=== PATIENT | male | born 1960 | race Caucasian/White ===

== ENCOUNTER → 2023-08-06 12:26 | Outpatient (BNVA) | payer BC, SELFPAY | PROVIDERS: PCP Nurse Practitioner Occupational Health; Referring Provider Nurse Practitioner Occupational Health; Visit Provider Internal Medicine | DX: R07.9 Chest pain, unspecified (principal); I45.10 Unspecified right bundle-branch block | CPT/HCPCS: 93005 ==

== ENCOUNTER → 2023-08-15 09:16 | Outpatient (BNVA) | payer BC, SELFPAY | PROVIDERS: PCP Nurse Practitioner Occupational Health; Referring Provider Nurse Practitioner Occupational Health; Visit Provider Psychiatry & Neurology Neurology | DX: R20.0 Anesthesia of skin (principal); R00.1 Bradycardia, unspecified; R42 Dizziness and giddiness; E55.9 Vitamin D deficiency, unspecified; H53.8 Other visual disturbances; G45.9 Transient cerebral ischemic attack, unspecified; R41.0 Disorientation, unspecified | CPT/HCPCS: 80053; 81241; 82306; 82607; 82746; 83090; 83735; 83921; 84425; 84439; 84481; 85025; 85210; 85613; 85730; 86146; 86147; 86376 ==

== ENCOUNTER 2023-08-22 11:29 | Outpatient (CLI) | payer BC, SELFPAY ==
--- NOTE | 2023-08-22 12:00 | USCV_ITS ---
Wign Hastings Age: 62 Gender: M : 1960 Exam Date: 08/22/2023 12:15 Ordering Phys: Jose Alfredo Whalen M.D ([email or web address]) Technologist: JOCELYN [place]am Location: [facility] [place] [facility] [place]ication: SHORTNESS OF BREATH BP: 134 / 86 HR: 49 Rhythm: Sinus Technical Quality: Adequate MEASUREMENTS (Male / Female) Normal Values 2D ECHO LV Diastolic Diameter PLAX 4.2 cm 4.2 - 5.9 / 3.9 - 5.3 cm IVS Diastolic Thickness 1.1 cm 0.6 - 1.0 / 0.6 - 0.9 cm IVS Systolic Thickness 1.5 cm LVPW Diastolic Thickness 1.7 cm 0.6 - 1.0 / 0.6 - 0.9 cm LVPW Systolic Thickness 2.5 cm LVOT Diameter 2.0 cm LV Ejection Fraction 2D Teich 63.0 % LV Ejection Fraction MOD 2C 58.1 % LV Ejection Fraction 2C AL 58.9 % LA Diameter 3.4 cm RA Systolic Volume 4C AL 32.1 ml RA Systolic Volume 4C MOD 31.7 ml LA Sys Volume AL 38.0 cm cubed LA Sys Volume Index AL 18.4 cm cubed/m squared Aorta at Sinotubular Diameter 2.6 cm IVC Diameter 1.5 cm M-MODE LA Ao Ratio MM 1.3 AV Cusp Separation MM 1.6 cm DOPPLER AV Peak Velocity 114.0 cm/s LVOT Peak Velocity 93.0 cm/s AV Area Cont Eq vti 3.1 cm squared AV Area Cont Eq pk 2.6 cm squared MV Peak Velocity 69.0 cm/s MV Area PHT 4.0 cm squared Mitral E to A Ratio 0.9 TR Peak Velocity 137.0 cm/s TR Peak Gradient 7.5 mmHg TR Mean Velocity 114.0 cm/s TR Mean Gradient 5.5 mmHg TR Velocity Time Integral 40.1 cm Right Atrial Pressure 3.0 mmHg Pulmonary Artery Systolic Pressu 10.5 mmHg PV Peak Velocity 104.0 cm/s RV Ejection Time 0.3 s FINDINGS Left Ventricle Left ventricle is normal in size. LV systolic function is normal with EF of 55 to 60%. No regional wall motion abnormalities are seen. Right Ventricle Normal in size and function Right Atrium Normal in size Left Atrium Normal in size Mitral Valve Structurally normal mitral valve. Trace mitral regurgitation. Aortic Valve Structurally normal aortic valve. No significant stenosis. Mild aortic regurgitation Tricuspid Valve Insufficient TR jet to evaluate RVSP. Pulmonic Valve Mild pulmonic regurgitation. Pericardium Normal Aorta Normal in size IVC Appears to be normal CONCLUSIONS LV systolic function is normal with EF of 55 to 60%. Trace mitral regurgitation Mild aortic regurgitation Mild pulmonic regurgitation No comparison studies are available. Jose Alfredo Whalen MD (Electronically Signed) Final Date: 05 September 2023 17:40 S
--- NOTE | 2023-08-22 13:00 | USCV_ITS ---
Wing Hastings Age: 62 Gender: M : 1960 Exam Date: 08/22/2023 11:44 Ordering Phys: Jose Alfredo Whalen M.D ([email or web address]) Technologist: SUJIT Exam Location: [facility] – [place] Indication: Dizziness. Blurred vision Risk Factors: Previous Vascular Surgery: Right Brachial BP: / Left Brachial BP: / Right Left Velocity (cm/s) Spectral Plaque Velocity (cm/s) Spectral Plaque Syst/Diast Broadening Syst/Diast Broadening 95.10/ 20.80 Prox CCA 130.30/ 30.50 106.30/29.10 Mid CCA 113.20/ 28.10 62.80/ 17.00 Distal CCA 77.10 / 23.20 54.90/ 11.40 Prox ICA 44.30 / 13.50 59.80/ 23.30 Mid ICA 66.40 / 28.90 70.40/ 20.80 Distal ICA 71.80 / 27.50 73.90 ECA 78.70 1.10 ICA/CCA 0.90 Antegrade Vertebral Antegrade 43.80/ 13.60 cm/s 59.80/ 17.90 cm/s Tri Subclavian Tri 174.1 135.7 0 0 FINDINGS Comparison: none available. No significant elevation of systolic or diastolic velocities. Waveforms are normal. Mild plaque at the bifurcations. Antegrade vertebral arteries. CONCLUSIONS Bilateral ICA stenosis less than 50%. Mild carotid atherosclerosis. Dr. Lindy Sy DO (Electronically Signed) Final Date: 22 Aug 2023 15:16 S
== END 2023-08-22 11:30 | disposition home or self-care (01) ==
LOC: RAD 11:29
PROVIDERS: PCP Nurse Practitioner Occupational Health; Visit Provider Internal Medicine
DX: R06.02 Shortness of breath (principal); R55 Syncope and collapse; I65.23 Occlusion and stenosis of bilateral carotid arteries
CPT/HCPCS: 93306; 93880

== ENCOUNTER 2023-08-22 13:00 | Outpatient (CLI) | payer BC, SELFPAY ==
--- NOTE | 2023-08-22 13:00 | USCV_ITS ---
Wing Hastings Age: 62 Gender: M : 1960 Exam Date: 08/22/2023 11:44 Ordering Phys: Jose Alfredo Whalen M.D ([email or web address]) Technologist: SUJIT [place] [facility] [place]: Dizziness. Blurred vision Risk Factors: Previous Vascular Surgery: Right Brachial BP: / Left Brachial BP: / Right Left Velocity (cm/s) Spectral Plaque Velocity (cm/s) Spectral Plaque Syst/Diast Broadening Syst/Diast Broadening 95.10/ 20.80 Prox CCA 130.30/ 30.50 106.30/29.10 Mid CCA 113.20/ 28.10 62.80/ 17.00 Distal CCA 77.10 / 23.20 54.90/ 11.40 Prox ICA 44.30 / 13.50 59.80/ 23.30 Mid ICA 66.40 / 28.90 70.40/ 20.80 Distal ICA 71.80 / 27.50 73.90 ECA 78.70 1.10 ICA/CCA 0.90 Antegrade Vertebral Antegrade 43.80/ 13.60 cm/s 59.80/ 17.90 cm/s Tri Subclavian Tri 174.1 135.7 0 0 FINDINGS Comparison: none available. No significant elevation of systolic or diastolic velocities. Waveforms are normal. Mild plaque at the bifurcations. Antegrade vertebral arteries. CONCLUSIONS Bilateral ICA stenosis less than 50%. Mild carotid atherosclerosis. Dr. Lindy Sy DO (Electronically Signed) Final Date: 22 Aug 2023 15:16 S
== END 2023-08-22 13:01 | disposition home or self-care (01) ==
LOC: RAD 09-05 09:00
PROVIDERS: PCP Nurse Practitioner Occupational Health; Visit Provider Internal Medicine
DX: R55 Syncope and collapse (principal); G45.9 Transient cerebral ischemic attack, unspecified; I65.23 Occlusion and stenosis of bilateral carotid arteries
CPT/HCPCS: 93880

== ENCOUNTER 2023-09-16 10:25 | Outpatient (CLI) | payer BC, SELFPAY ==
--- NOTE | 2023-09-16 10:38 | MR_ITS ---
WS: [id number] MRI HEAD WITH CONTRAST TECHNIQUE: Sagittal T1, T2 axial, T2 axial FLAIR, axial susceptibility weighted imaging, axial diffus ion weighted images, and coronal T2 images were obtained. Pre and post-T1 axial and post T1 coronal i mages. ADC and FSPGR images. CLINICAL INFORMATION: ANESTHESIA OF SKIN/TIA COMPARISON: None. FINDINGS: No evidence of restricted diffusion to suggest acute ischemia. Ventricular system and basilar cistern s are patent. Minimal small vessel changes. Mild parenchymal volume loss. Normal posterior fossa. Nor mal vascular flow voids at the skull base. No extra-axial fluid collections. No evidence of mass or m ass effect. Mild mucosal thickening of the transverse sinuses. Mastoid air cells are well aerated. No hemosiderin on the susceptibly weighted images. Normal optic chiasm and pituitary infundibulum. Mi ld symmetric atrophy temporal lobes and hippocampal formations. No abnormal gadolinium enhancement. Normal visualized dural venous sinuses. No other suspicious findi ngs. MR/MR head wo/w con [id number] IMPRESSION: 1. No evidence of restricted diffusion to suggest acute ischemia. 2. Minimal small vessel changes. Mild parenchymal volume loss. 3. No hemosiderin on the susceptibly weighted images. 4. No abnormal gadolinium enhancement. 5. No other acute findings.
[2023-09-16] MEDS: gadobenate dimeglumine 20 mL vial IV (11:23)
== END 2023-09-16 10:26 | disposition home or self-care (01) ==
LOC: RAD 10:29
PROVIDERS: PCP Nurse Practitioner Occupational Health; Visit Provider Psychiatry & Neurology Neurology
DX: G31.89 Other specified degenerative diseases of nervous system (principal); J34.89 Other specified disorders of nose and nasal sinuses
CPT/HCPCS: 70553; A9577